=== PATIENT | female | born 2000 | race Caucasian/White ===

== ENCOUNTER 2021-06-05 15:28 | Inpatient (IN) ==
[2021-06-05] MEDS ORDERED: SODIUM CHLORIDE 0.9% 1000ML 1,000 ML IV SCH (15:45)
[2021-06-05] MEDS ORDERED: ONDANSETRON INJ 2 MG/ML 2 ML VIAL IV STA (15:49)
[2021-06-05] MEDS ORDERED: SODIUM CHLORIDE 0.9% 1000ML 1,000 ML IV ONE (15:51)
--- NOTE | 2021-06-05 15:56 | Emergency Department Note ---
Impression & Plan Deliberate medication overdose, Depression with suicidal ideation ED Provider Note NAME: TONIA BARNES AGE: 21 SEX: F : 2000 ARRIVES VIA: Walk-In INFORMANT: Patient, ED PROVIDER(S): Venu Ya DO CHIEF COMPLAINT: Overdose HPI: The patient is a 21-year-old female who presented to the emergency department from triage for an evaluation after an overdose. The patient states that she was not feeling well and had "a very rough morning". She states that she took an overdose of her Lexapro. She states that she took 30 tablets of the 20 mg Lexapro that she is prescribed for depression anxiety. She had 3 episodes of emesis after this. She states that this occurred around 3 PM. She is very depressed and states that she was trying to hurt her self. She denies having any chest pain or difficulty breathing. She did not have any reported seizures. She called her friend who brought her to the emergency department. The patient states that she has never been admitted to a facility for the symptoms before. She states that she has no hallucinations or other ingestions. Patient denies any drug or alcohol use today. ROS: See above HPI for pertinent positives & negatives. A total of 10 systems reviewed and were otherwise negative. PAST MEDICAL HISTORY: See Below PAST SURGICAL HISTORY: See Below FAMILY HISTORY: See Below SOCIAL HISTORY: See Below HOME MEDICATIONS: See Below ALLERGIES: See Below VITALS: See Below PHYSICAL EXAMINATION: GENERAL: The patient is awake and alert. She is guarded and somewhat anxious appearing. EYES: The conjunctivae are clear. The pupils are round and reactive. EARS, NOSE, MOUTH AND THROAT: The nose is without any evidence of any deformity. NECK: The neck is nontender and supple. RESPIRATORY: Normal respiratory effort is noted there is no evidence of wheezing rhonchi or rales CARDIOVASCULAR: Tachycardic rate with regular rhythm was noted. There is no definite murmur. GASTROINTESTINAL: The abdomen is soft. Abdomen is nontender. MUSCULOSKELETAL/EXTREMITIES: There is no evidence of gross deformity full range of motion is noted in the hips and shoulders. SKIN: There is no obvious evidence of any rash. There are no petechiae, pallor or cyanosis noted. NEUROLOGIC: Patient is awake alert and oriented x3 strength is symmetric p atellar reflexes are 2+ bilaterally PSYCH: Patient makes poor eye contact for mostly evaluation. Her affect is flat. She is currently admitting to thoughts of hurting herself. MEDICAL DECISION MAKING: The patient is a 21-year-old female who presented to the emergency department for mental health evaluation. The patient took a significant amount of Lexapro. She did have multiple episodes of emesis. Attempts were made to medically clear the patient in the emergency department. I discussed the patient's condition with poison control multiple times. I also discussed this case with the on-call [facility] hospitalist. She was treated with IV fluids in the emergency department. Her QTC did prolong after her initial EKG. Poison control felt the patient was a good candidate for inpatient management. They recommended every 6 hour EKG tracings followed by magnesium and potassium replacement based on the QTC. The patient was treated with IV fluids IV magnesium and oral potassium while she was in the emergency department. Triage Nursing notes reviewed. Prior medical records reviewed Vital Signs: reviewed and remarkable for tachycardia. Differential diagnosis: Overdose, toxicologic, infection, hypoglycemia, electrolyte abnormalities, cardiac sources, intracerebral event, neurologic, trauma, as well as other pathologies. ER treatment provided: See below Diagnostics interpreted by me: ECG: EKG was obtained in the emergency department. My interpretation is sinus tachycardia 107 bpm. There is no ectopy. Incomplete right bundle branch block pattern was noted. QRS duration was 88 ms. QTc was 483 ms. No previous tracing was available. A second EKG was obtained in the emergency department. My interpretation is sinus rhythm at 96 bpm. Incomplete right bundle branch block. The QTC is now 512 ms. The QRS duration continues to be 88 ms. Cardiac Monitoring: An order was placed for continuous cardiac monitoring. The monitor shows a rate of 103 bpm with sinus tachycardia. Laboratory studies: As stated above and show below. Imaging studies: See below Consultation(s): I discussed this case with Poison Control Center. Discussed this case with Dr. Pavon who is on-call for the [facility]ist group. Past Med/Surg History Medical History Anxiety Depression Social History Smoking Status: Never smoker Hx Alcohol Use: Yes Results & Data (ED) Vital Signs Vital Signs - 24 hr 06/05/21 15:30 06/05/21 15:57 06/05/21 16:00 Temperature 36.5 C Temperature Source Temporal Artery Scan Pulse Rate 129 H Pulse Rate [Apical] 103 H Pulse Rhythm [Apical] Pulse Strength [Apical] Respiratory Rate 18 21 Respiratory Effort / Characteristics Non-Labored Spontaneous Respiratory Depth Normal Respiratory Pattern Blood Pressure 132/77 Blood Pressure [Left Arm] 124/88 Blood Pressure Mean 95 Blood Pressure Mean [Left Arm] 100 Blood Pressure Position Sitting Blood Pressure Position [Left Arm] Pulse Oximetry 96 98 Oxygen Delivery Method Room Air Room Air Room Air Oxygen Flow Rate Sepsis Recent Fever Within 48 Hours No Sepsis New/Unexplained Change in Mental Status No Sepsis Action Taken by Nursing No Action Required 06/05/21 16:07 06/05/21 18:00 06/05/21 20:00 Temperature 36.9 C Temperature Source Oral Pulse Rate Pulse Rate [Apical] 99 H 103 H Pulse Rhythm [Apical] Regular Pulse Strength [Apical] Normal Respiratory Rate 19 18 Respiratory Effort / Characteristics Non-Labored Spontaneous Respiratory Depth Normal Respiratory Pattern Regular Blood Pressure Blood Pressure [Left Arm] 120/86 131/80 Blood Pressure Mean Blood Pressure Mean [Left Arm] 97 97 Blood Pressure Position Blood Pressure Position [Left Arm] Lying Pulse Oximetry 98 98 Oxygen Delivery Method Room Air Room Air Room Air Oxygen Flow Rate 98 Sepsis Recent Fever Within 48 Hours Sepsis New/Unexplained Change in Mental Status Sepsis Action Taken by [facility] Medications Current Medication List: was personally reviewed by me Laboratory Data Attestation: I reviewed the patient's lab results. Result diagrams: 06/05/21 15:55 06/05/21 15:55 Lab Results 06/05/21 06/05/21 06/05/21 Range/Units 15:44 15:44 15:55 WBC 7.10 (4.8-10.8) K/uL RBC 4.87 (4.2-5.4) M/uL Hgb 15.1 (12.0-16.0) g/dL Hct 41.9 (37-47) % MCV 86.0 (80-100) fL MCH 31.0 (25-34) pg MCHC 36.0 (32-36) g/dL RDW Std Deviation 41.8 (36.4-46.3) fL RDW Coeff of Sweta 13.2 (11.5-14.5) % Plt Count 263 (130-400) K/uL MPV 9.2 (7.4-10.4) fL Immature Gran % (Auto) 0.3 % Neut % (Auto) 49.9 % Lymph % (Auto) 41.1 % [place] % (Auto) 6.8 % Eos % (Auto) 1.3 % Baso % (Auto) 0.6 % Neut # (Auto) 3.55 (1.4-6.5) K/uL Lymph # (Auto) 2.92 (1.2-3.4) K/uL [place] # (Auto) 0.48 (0.11-0.59) K/uL Eos # (Auto) 0.09 (0-0.5) K/uL Baso # (Auto) 0.04 (0-0.2) K/uL Immature Gran # (Auto) 0.02 (0.00-0.02) K/uL PT (9.0-12.0) Seconds INR (0.9-1.1) Sodium (136-145) mmol/L Potassium (3.5-5.1) mmol/L Chloride (98-107) mmol/L Carbon Dioxide (21-32) mmol/L Anion Gap (3-11) BUN (6-23) mg/dl Creatinine (0.6-1.2) mg/dl Est Cr Clr Drug Dosing ml/min Est GFR ( Amer) ml/min Est GFR (Non-Af Amer) ml/min BUN/Creatinine Ratio (10-20) Glucose (70-99(Fasting)) mg/dl Calcium (8.5-10.1) mg/dl Magnesium (1.7-2.4) mg/dl Total Bilirubin (0.2-1.0) mg/dl AST (13-39) U/L ALT (7-52) U/L Alkaline Phosphatase (34-104) U/L Total Creatine Kinase (26-192) U/L Troponin I (0-0.04) ng/ml Total Protein (6.0-8.3) gm/dl Albumin (3.4-5.0) gm/dl Globulin (2.5-4.0) gm/dl Albumin/Globulin Ratio (0.9-2) HCG, Qual (Negative) Urine Color Yellow Urine Appearance Clear (Clear) Urine pH 5.5 (4.5-7.5) Ur Specific [place] 1.019 (1.000-1.030) Urine Protein Negative (Negative) Urine Glucose (UA) Negative (Negative) Urine Ketones Negative (Negative) Urine Blood Negative (Negative) Urine Nitrite Negative (Negative) Urine Bilirubin Negative (Negative) Urine Urobilinogen Negative (Negative) Ur Leukocyte Esterase Negative (Negative) Salicylates (3.0-30) mg/dl Urine Opiates Screen Neg (Neg) Ur Methadone, Qual Neg (Neg) Acetaminophen (10-30) ug/ml Urine Barbiturates Neg (Neg) Ur Phencyclidine (PCP) Neg (Neg) U Amphetamin/Meth Scrn Neg (Neg) MDMA (Ecstasy) Screen Neg (Neg) U Benzodiazepines Scrn Neg (Neg) Ur Cocaine Metabolite Neg (Neg) U Marijuana (THC) Screen Neg (Neg) Ethyl Alcohol mg/dL (<10.0) mg/dl SARS-CoV-2, RNA, NAAT (NEGATIVE) 06/05/21 06/05/21 06/05/21 Range/Units 15:55 15:55 15:55 WBC (4.8-10.8) K/uL RBC (4.2-5.4) M/uL Hgb (12.0-16.0) g/dL Hct (37-47) % MCV (80-100) fL MCH (25-34) pg MCHC (32-36) g/dL RDW Std Deviation (36.4-46.3) fL RDW Coeff of Sweta (11.5-14.5) % Plt Count (130-400) K/uL MPV (7.4-10.4) fL Immature Gran % (Auto) % Neut % (Auto) % Lymph % (Auto) % [place] % (Auto) % Eos % (Auto) % Baso % (Auto) % Neut # (Auto) (1.4-6.5) K/uL Lymph # (Auto) (1.2-3.4) K/uL [place] # (Auto) (0.11-0.59) K/uL Eos # (Auto) (0-0.5) K/uL Baso # (Auto) (0-0.2) K/uL Immature Gran # (Auto) (0.00-0.02) K/uL PT 10.5 (9.0-12.0) Seconds INR 1.0 (0.9-1.1) Sodium 142 (136-145) mmol/L Potassium 3.9 (3.5-5.1) mmol/L Chloride 108 H (98-107) mmol/L Carbon Dioxide 22 (21-32) mmol/L Anion Gap 12 H (3-11) BUN 19 (6-23) mg/dl Creatinine 0.82 (0.6-1.2) mg/dl Est Cr Clr Drug Dosing 93.4 ml/min Est GFR ( Amer) 118.6 ml/min Est GFR (Non-Af Amer) 102.3 ml/min BUN/Creatinine Ratio 23.2 H (10-20) Glucose 101 H (70-99(Fasting)) mg/dl Calcium 9.1 (8.5-10.1) mg/dl Magnesium 1.8 (1.7-2.4) mg/dl Total Bilirubin 0.4 (0.2-1.0) mg/dl AST 32 (13-39) U/L ALT 24 (7-52) U/L Alkaline Phosphatase 58 (34-104) U/L Total Creatine Kinase 145 (26-192) U/L Troponin I < 0.03 (0-0.04) ng/ml Total Protein 7.3 (6.0-8.3) gm/dl Albumin 4.5 (3.4-5.0) gm/dl Globulin 2.8 (2.5-4.0) gm/dl Albumin/Globulin Ratio 1.6 (0.9-2) HCG, Qual (Negative) Urine Color Urine Appearance (Clear) Urine pH (4.5-7.5) Ur Specific [place] (1.000-1.030) Urine Protein (Negative) Urine Glucose (UA) (Negative) Urine Ketones (Negative) Urine Blood (Negative) Urine Nitrite (Negative) Urine Bilirubin (Negative) Urine Urobilinogen (Negative) Ur Leukocyte Esterase (Negative) Salicylates < 3.0 L (3.0-30) mg/dl Urine Opiates Screen (Neg) Ur Methadone, Qual (Neg) Acetaminophen < 3 L (10-30) ug/ml Urine Barbiturates (Neg) Ur Phencyclidine (PCP) (Neg) U Amphetamin/Meth Scrn (Neg) MDMA (Ecstasy) Screen (Neg) U Benzodiazepines Scrn (Neg) Ur Cocaine Metabolite (Neg) U Marijuana (THC) Screen (Neg) Ethyl Alcohol mg/dL (<10.0) mg/dl SARS-CoV-2, RNA, NAAT (NEGATIVE) 06/05/21 06/05/21 06/05/21 Range/Units 15:55 15:55 18:05 WBC (4.8-10.8) K/uL RBC (4.2-5.4) M/uL Hgb (12.0-16.0) g/dL Hct (37-47) % MCV (80-100) fL MCH (25-34) pg MCHC (32-36) g/dL RDW Std Deviation (36.4-46.3) fL RDW Coeff of Sweta (11.5-14.5) % Plt Count (130-400) K/uL MPV (7.4-10.4) fL Immature Gran % (Auto) % Neut % (Auto) % Lymph % (Auto) % [place] % (Auto) % Eos % (Auto) % Baso % (Auto) % Neut # (Auto) (1.4-6.5) K/uL Lymph # (Auto) (1.2-3.4) K/uL [place] # (Auto) (0.11-0.59) K/uL Eos # (Auto) (0-0.5) K/uL Baso # (Auto) (0-0.2) K/uL Immature Gran # (Auto) (0.00-0.02) K/uL PT (9.0-12.0) Seconds INR (0.9-1.1) Sodium (136-145) mmol/L Potassium (3.5-5.1) mmol/L Chloride (98-107) mmol/L Carbon Dioxide (21-32) mmol/L Anion Gap (3-11) BUN (6-23) mg/dl Creatinine (0.6-1.2) mg/dl Est Cr Clr Drug Dosing ml/min Est GFR ( Amer) ml/min Est GFR (Non-Af Amer) ml/min BUN/Creatinine Ratio (10-20) Glucose (70-99(Fasting)) mg/dl Calcium (8.5-10.1) mg/dl Magnesium (1.7-2.4) mg/dl Total Bilirubin (0.2-1.0) mg/dl AST (13-39) U/L ALT (7-52) U/L Alkaline Phosphatase (34-104) U/L Total Creatine Kinase (26-192) U/L Troponin I (0-0.04) ng/ml Total Protein (6.0-8.3) gm/dl Albumin (3.4-5.0) gm/dl Globulin (2.5-4.0) gm/dl Albumin/Globulin Ratio (0.9-2) HCG, Qual Negative (Negative) Urine Color Urine Appearance (Clear) Urine pH (4.5-7.5) Ur Specific [place] (1.000-1.030) Urine Protein (Negative) Urine Glucose (UA) (Negative) Urine Ketones (Negative) Urine Blood (Negative) Urine Nitrite (Negative) Urine Bilirubin (Negative) Urine Urobilinogen (Negative) Ur Leukocyte Esterase (Negative) Salicylates (3.0-30) mg/dl Urine Opiates Screen (Neg) Ur Methadone, Qual (Neg) Acetaminophen (10-30) ug/ml Urine Barbiturates (Neg) Ur Phencyclidine (PCP) (Neg) U Amphetamin/Meth Scrn (Neg) MDMA (Ecstasy) Screen (Neg) U Benzodiazepines Scrn (Neg) Ur Cocaine Metabolite (Neg) U Marijuana (THC) Screen (Neg) Ethyl Alcohol mg/dL 81.9 H (<10.0) mg/dl SARS-CoV-2, RNA, NAAT NEGATIVE (NEGATIVE) Administered Medications Discontinued Medications Sodium Chloride (Nss 1000ml) 1,000 mls @ 999 mls/hr IV .Q1H1M ANJEL Stop: 06/05/21 16:45 Last Infusion: 06/05/21 17:45 Dose: 0 mls/hr Documented by: [id number] Admin: 06/05/21 16:09 Dose: 999 mls/hr Documented by: [id number] Sodium Chloride (Nss 1000ml) 1,000 mls @ 999 mls/hr IV .Q1H1M ONE Stop: 06/05/21 16:51 Last Infusion: 06/05/21 18:15 Dose: 0 mls/hr Documented by: [id number] Admin: 06/05/21 16:52 Dose: 999 mls/hr Documented by: [id number] Ondansetron HCl (Ondansetron Inj 2 Mg/Ml 2 Ml Vial) 4 mg IV NOW STA Stop: 06/05/21 15:50 Last Admin: 06/05/21 16:24 Dose: 4 mg Documented by: [id number] Discharge Plan Visit Data Chief Complaint: Overdose (Intentional) Stated Complaint: OVERDOSE ED Provider: Venu Ya Discharge Problem: Deliberate medication overdose, Depression with suicidal ideation Patient Disposition: Being Evaluated by Hospitalist Forms Stand Alone Forms: [facility], Suicide Prevention Resources Referrals Referrals: PCP,NO [Physician] -
[2021-06-05 16:13] LABS: Appearance Urine Clear (Clear); Bilirubin Urine Negative (Negative); Blood Urine Negative (Negative); Color Urine Yellow; Glucose Urine UA Negative (Negative); Ketones Urine Negative (Negative); Leukocyte Esterase Urine Negative (Negative); Nitrite Urine Negative (Negative); Protein Urine Negative (Negative); Specific Gravity Urine 1.019 (1.000-1.030); Urobilinogen Urine Negative (Negative); pH Urine 5.5 (4.5-7.5)
[2021-06-05 16:17] LABS: Basophils # (auto) 0.04 K/uL (0-0.2); Basophils % (auto) 0.6 %; Eosinophils # (auto) 0.09 K/uL (0-0.5); Eosinophils % (auto) 1.3 %; Hematocrit (blood only) 41.9 % (37-47); Hemoglobin 15.1 g/dL (12.0-16.0); Immature Granulocytes # (auto) 0.02 K/uL (0.00-0.02); Immature Granulocytes % (auto) 0.3 %; Lymphocytes # (auto) 2.92 K/uL (1.2-3.4); Lymphocytes % (auto) 41.1 %; Mean Platelet Volume 9.2 fL (7.4-10.4); Monocytes # (auto) 0.48 K/uL (0.11-0.59); Monocytes % (auto) 6.8 %; Neutrophils # (auto) 3.55 K/uL (1.4-6.5); Neutrophils % (auto) 49.9 %; Platelet Count 263 K/uL (130-400); RDW Coefficient of Variation 13.2 % (11.5-14.5); RDW Standard Deviation 41.8 fL (36.4-46.3); Red Blood Count 4.87 M/uL (4.2-5.4)
[2021-06-05 16:22] LABS: Prothrombin Time 10.5 Seconds (9.0-12.0)
[2021-06-05 16:31] LABS: Amphetamines+Metham, Urine Neg (Neg); Barbiturates, Urine Neg (Neg); Benzodiazepine, Urine Neg (Neg); Cocaine, Urine Neg (Neg); MDMA (Ecstacy), Urine Neg (Neg); Methadone, Urine Neg (Neg); Opiate, Urine Neg (Neg); Phencyclidine, Urine Neg (Neg)
[2021-06-05 16:45] LABS: Acetaminophen < 3 ug/ml (10-30); Salicylate < 3.0 mg/dl (3.0-30)
[2021-06-05 16:46] LABS: Troponin I < 0.03 ng/ml (0-0.04)
[2021-06-05 16:49] LABS: Alanine Aminotransferase 24 U/L (7-52); Albumin Globulin Ratio 1.6 (0.9-2); Albumin Level 4.5 gm/dl (3.4-5.0); Alkaline Phosphatase 58 U/L (34-104); Anion Gap 12 (3-11); Aspartate Aminotransferase 32 U/L (13-39); BUN Creatinine Ratio 23.2 (10-20); Bilirubin,Total 0.4 mg/dl (0.2-1.0); Blood Urea Nitrogen 19 mg/dl (6-23); Calcium 9.1 mg/dl (8.5-10.1); Carbon Dioxide 22 mmol/L (21-32); Chloride 108 mmol/L (98-107); Creatine Kinase 145 U/L (26-192); Creatinine Clr Calc Pharmacy 93.4 ml/min; Est GFR (African American) 118.6 ml/min; Est GFR (Non-African American) 102.3 ml/min; Globulin 2.8 gm/dl (2.5-4.0); Glucose 101 mg/dl (70-99(Fasting)); Magnesium 1.8 mg/dl (1.7-2.4); Potassium 3.9 mmol/L (3.5-5.1); Sodium 142 mmol/L (136-145); Total Protein 7.3 gm/dl (6.0-8.3)
[2021-06-05 17:00] LABS: Pregnancy Test, Serum Negative (Negative)
[2021-06-05] MEDS ORDERED: POTASSIUM CHLORIDE 10 MEQ TABCR PO STA (20:51)
[2021-06-05] MEDS: MAGNESIUM SULFATE / D5W 1 GM/100 ML BAG IV SCH ×2 (21:36→23:29)
--- NOTE | 2021-06-05 21:50 | History & Physical Report ---
Date of Service June 05, 2021 Assessment & Plan (1) Deliberate medication overdose: Plan: Terese Quevedo is a 21-year-old female with history of depression who was brought to the hospital due to intentional Lexapro overdose. Depression with intentional medication overdose Patient intentionally ingested Lexapro 20 mg x 30 pills in an attempt to self- harm Per patient, this is the first time she has attempted Admit to telemetry Hold any further Lexapro doses Will continue IV hydration with LR at 125 cc/h EKGs every 6 hours Mag sulfate, potassium chloride supplementation depending on QTc interval on EKGs Patient with several episodes of emesis, nausea now seems resolved will hold on ordering as needed antiemetics due to risk of further QT prolongation Psych consult in a.m. DVT prophylaxis: SCDs Dispo: Admit to med telemetry Diet: Regular CODE STATUS: Full (2) Depression with suicidal ideation: History of Present Illness Primary Care Provider: [facility] Terese Quevedo is a 21-year-old female with history of depression who was brought to the hospital due to intentional Lexapro overdose. She states that she was feeling particularly down today and had a rough morning. Around 3 PM patient took 30 pills of her 20 mg Lexapro, which she uses daily for depression. Shortly after she had 3 episodes of emesis. At that point, patient became concerned and called a friend, who brought her to the hospital. Per patient, this is her first self-harm attempt. At this time, patient is stable. She denies chest pain, palpitations, shortness of breath, headache, dizziness, nausea, hallucination. Denies any illicit drug use or alcohol consumption today. In ED, patient had EKG initially showing mildly prolonged QTC at 483, repeat EKG showed QTC of 512. ED provider did contact poison control, who recommended admission for hydration, serial monitoring of EKGs, and magnesium/potassium repl acement based on QTC. She did receive mag sulfate 2 g, KCl 20 mEq in ED. I discussed plan of care with patient, friend at bedside, patient's father at bedside. All in agreement, all questions answered to their satisfaction. Allergies Allergy/AdvReac Type Severity Reaction Status Date / Time No Known Allergies Allergy Unverified 06/06/21 19:42 Past Med/Surg History Medical History Anxiety Depression Social History Smoking Status: Never smoker Hx Alcohol Use: Yes Alcohol type: beer, wine and hard liquor Hx Substance Use: No Preferred Language: Belarusian Communication Ability: Effective Lozenge Maker Helper Required: No Beliefs That Will Affect Care: None Current Living Situation: Other Current Living Situation Comment: Lives in an apartment with three roommates Feels Safe at Home: Yes Assistive Devices: None Review of Systems Review of Systems: All systems reviewed & are unremarkable except as noted in HPI & below Physical Exam Physical Exam: GENERAL: A&Ox3. NAD. HEENT: PERRL, EOMI. Moist mucous membranes. NECK: No JVD. No lymphadenopathy. CHEST/LUNGS: CTAB A/P. No crackles, wheezes, rales, rhonchi. HEART: RRR. No m/g/r. No carotid bruits. ABDOMEN: NT/ND, soft. BS+ x4 EXTREMITIES: No cyanosis, no clubbing, no edema SKIN: Warm and dry. No rashes or lesions. PSYCHIATRIC: Euthymic affect, no SI, no pressured speech, no hallucinations NEUROLOGIC: No FND CN II-XII grossly intact. Results & Data Results & Data ([facility]) Vital Signs (Past 12 Hours) Vital Signs Temp Pulse Pulse Resp BP BP Pulse Ox 06/05/21 20:00 36.9 C 103 H 18 131/80 98 06/05/21 18:00 99 H 19 120/86 98 06/05/21 16:00 103 H 21 124/88 98 06/05/21 15:30 36.5 C 129 H 18 132/77 96 Supervising Physician Co-Signing Physician Notes Attending addendum: I have physically seen this patient, have supervised the medical residents activities, and agree with the H&P unless as otherwise noted. Assessment and Plan: Intentional drug overdose with Lexapro- Admit to monitored bed Continue IV fluid hydration with LR at 125 mils per hour Follow serial EKGs, attention to QT interval Psychiatry consult in a.m. Remaining orders and notations as noted Resident Activity Tracking Resident Involvement: Resident Care Provided Care Provided: Adult [facility]
[2021-06-05] MEDS: LACTATED RINGER'S 1,000 ML IV SCH (23:28)
[2021-06-06] MEDS: LACTATED RINGER'S 1,000 ML IV SCH ×2 (07:29→15:41)
[2021-06-06 09:05] LABS: Basophils # (auto) 0.03 K/uL (0-0.2); Basophils % (auto) 0.5 %; Eosinophils # (auto) 0.07 K/uL (0-0.5); Eosinophils % (auto) 1.2 %; Hematocrit (blood only) 38.2 % (37-47); Hemoglobin 13.4 g/dL (12.0-16.0); Immature Granulocytes % (auto) 0.2 %; Lymphocytes # (auto) 2.37 K/uL (1.2-3.4); Lymphocytes % (auto) 40.2 %; Mean Corpuscular Hemoglobin 30.7 pg (25-34); Mean Corpuscular Hgb Conc 35.1 g/dL (32-36); Mean Corpuscular Volume 87.4 fL (80-100); Mean Platelet Volume 9.4 fL (7.4-10.4); Monocytes # (auto) 0.66 K/uL (0.11-0.59); Monocytes % (auto) 11.2 %; Neutrophils # (auto) 2.76 K/uL (1.4-6.5); Neutrophils % (auto) 46.7 %; Platelet Count 210 K/uL (130-400); RDW Coefficient of Variation 12.8 % (11.5-14.5); RDW Standard Deviation 41.3 fL (36.4-46.3); Red Blood Count 4.37 M/uL (4.2-5.4)
[2021-06-06 09:06] LABS: Immature Granulocytes # (auto) 0.01 K/uL (0.00-0.02)
[2021-06-06 09:24] LABS: Albumin Globulin Ratio 1.7 (0.9-2); Albumin Level 3.7 gm/dl (3.4-5.0); BUN Creatinine Ratio 15.7 (10-20); Bilirubin,Total 0.7 mg/dl (0.2-1.0); Calcium 8.5 mg/dl (8.5-10.1); Creatinine Clr Calc Pharmacy 109.4 ml/min; Est GFR (African American) 143.5 ml/min; Est GFR (Non-African American) 123.9 ml/min; Globulin 2.2 gm/dl (2.5-4.0); Potassium 3.6 mmol/L (3.5-5.1); Total Protein 5.9 gm/dl (6.0-8.3)
--- NOTE | 2021-06-06 10:28 | Hospitalist Progress Note ---
Date of Service June 06, 2021 Assessment & Plan (1) Deliberate medication overdose: Plan: Patient intentionally ingested Lexapro 20 mg x 30 pills in an attempt to self- harm Per patient, this is the first time she has attempted Medically stable for discharge at this time - 24 hours post ingestion. QTc not prolonged. VS stable. Labs unremarkable. Hold any further Lexapro doses - appreciate psychiatry consult - patient agreeable to 201 nd planning on discharge to a psychiatric bed once available (2) Depression with suicidal ideation: (3) Anxiety: Plan: Holding all SSRIs given overdose with Lexapro (4) Depression: Plan: As above Plan: DVT prophylaxis: SCDs Dispo: medically stable for discharge at this time as soon as a bed is available with psychiatry Diet: Regular CODE STATUS: Full Admission and Anticipated Discharge Date Admission Date: June 05, 2021 Subjective No concerns, questions or ongoing symptoms. No further nausea or vomiting. No chest pain, shortness of breath, extremity weakness, change in vision, hearing or speech. Review of Systems Review of Systems: All systems reviewed & are unremarkable except as noted in Subjective Physical Exam Constitutional: WD/WN, vitals as above Eyes: PERRL, conjunctivae normal, anicteric sclerae ENMT: external ear and nose normal, oropharynx normal Respiratory: normal respiratory effort, lungs clear to auscultation Cardiovascular: RRR, no murmur, no edema Gastrointestinal (Abdomen): normal bowel sounds, soft, nontender, no hepatosplenomegaly Skin: no rashes, warm and dry Neurologic: moves all extremities and awake; not confused Psychiatric: A+Ox3, euthymic affect Results & Data Results & Data ([facility]) Vital Signs (Past 12 Hours) Vital Signs Temp Pulse Pulse Resp BP BP Pulse Ox 06/06/21 07:00 66 20 115/76 96 06/06/21 04:00 69 17 96 06/06/21 03:48 68 17 107/56 L 94 06/06/21 03:00 68 21 96 06/06/21 02:00 73 20 95 06/06/21 01:00 93 H 17 96 06/06/21 00:00 84 23 97 06/05/21 23:23 36.7 C 86 17 125/67 96 06/05/21 23:09 86 19 125/67 96 06/05/21 23:07 98 H 12 06/05/21 22:30 84 16 119/69 95 Pulse Ox 06/06/21 07:00 06/06/21 04:00 06/06/21 03:48 06/06/21 03:00 06/06/21 02:00 06/06/21 01:00 06/06/21 00:00 06/05/21 23:23 06/05/21 23:09 06/05/21 23:07 99 06/05/21 22:30 PG Care Time/CCT Total # of Minutes Spent Total Time Spent with Patient: Total time spent is greater than 50% in coordination of care (as documented) at patient's floor/unit and/or counseling patient: Coding Level of Care Code 82046 Subseq Hosp Care Lvl 2 Diagnoses Depression with suicidal ideation F32.A; R45.851 Deliberate medication overdose T50.902A Depression F32.A Anxiety F41.9
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
--- NOTE | 2021-06-06 21:56 | Electrocardiogram Report ---
Test Reason : Blood Pressure : / mmHG Vent. Rate : 107 BPM Atrial Rate : 107 BPM P-R Int : 142 ms QRS Dur : 088 ms QT Int : 362 ms P-R-T Axes : 057 089 067 degrees QTc Int : 483 ms Sinus tachycardia Possible Left atrial enlargement Prolonged QT No previous ECGs available Confirmed by Basil Youssef ([id number]) on 06/06/2021 9:55:35 PM Referred By: REFERRED SELF Confirmed By:Basil Youssef
--- NOTE | 2021-06-06 22:03 | Electrocardiogram Report ---
Test Reason : Blood Pressure : / mmHG Vent. Rate : 096 BPM Atrial Rate : 096 BPM P-R Int : 134 ms QRS Dur : 088 ms QT Int : 388 ms P-R-T Axes : 054 088 053 degrees QTc Int : 491 ms Poor data quality, interpretation may be adversely affected Normal sinus rhythm Possible Left atrial enlargement Nonspecific T wave abnormality Prolonged QT Abnormal ECG When compared with ECG of 05-JUN-2021 16:00, Nonspecific T wave abnormality, worse in Anterolateral leads Confirmed by Basil Youssef ([id number]) on 06/06/2021 10:02:49 PM Referred By: REFERRED SELF Confirmed By:Basil Youssef
--- NOTE | 2021-06-06 22:09 | Electrocardiogram Report ---
Test Reason : Blood Pressure : / mmHG Vent. Rate : 075 BPM Atrial Rate : 075 BPM P-R Int : 142 ms QRS Dur : 088 ms QT Int : 432 ms P-R-T Axes : 045 087 063 degrees QTc Int : 482 ms Poor data quality, interpretation may be adversely affected Normal sinus rhythm Prolonged QT Abnormal ECG When compared with ECG of 05-JUN-2021 20:19, Nonspecific T wave abnormality no longer evident in Inferior leads Nonspecific T wave abnormality no longer evident in Anterolateral leads Confirmed by Basil Youssef ([id number]) on 06/06/2021 10:09:42 PM Referred By: REFERRED SELF Confirmed By:Basil Youssef
--- NOTE | 2021-06-07 03:29 | Billing Data ---
Date of Service June 07, 2021 Coding Level of Care Code 70087 Initial Inpt Care Lvl 2
--- NOTE | 2021-06-09 16:06 | Discharge Summary ---
Date of Service June 09, 2021 Admission HPI Per Admitting Provider Terese Quevedo is a 21-year-old female with history of depression who was brought to the hospital due to intentional Lexapro overdose. She states that she was feeling particularly down today and had a rough morning. Around 3 PM patient took 30 pills of her 20 mg Lexapro, which she uses daily for depression. Shortly after she had 3 episodes of emesis. At that point, patient became concerned and called a friend, who brought her to the hospital. Per patient, this is her first self-harm attempt. At this time, patient is stable. She denies chest pain, palpitations, shortness of breath, headache, dizziness, nausea, hallucination. Denies any illicit drug use or alcohol consumption today. In ED, patient had EKG initially showing mildly prolonged QTC at 483, repeat EKG showed QTC of 512. ED provider did contact poison control, who recommended admission for hydration, serial monitoring of EKGs, and magnesium/potassium replacement based on QTC. She did receive mag sulfate 2 g, KCl 20 mEq in ED. I discussed plan of care with patient, friend at bedside, patient's father at bedside. All in agreement, all questions answered to their satisfaction. Principal Diagnosis Intentional Lexapro overdose Discharge Exam Constitutional WD/WN, vitals as above Eyes PERRL, conjunctivae normal, anicteric sclerae Neck trachea midline, no thyromegaly Respiratory normal respiratory effort, lungs clear to auscultation Cardiovascular RRR, no murmur, no edema Gastrointestinal (Abdomen) Inspection/Auscultation: normal bowel sounds Percussion/Palpation: abdomen soft; abdomen nontender, no guarding and abdomen not rigid Musculoskeletal no cyanosis or clubbing, extremities motor strength 5/5 Skin no rashes, warm and dry Neurologic moves all extremities and awake; no focal motor deficits and not confused Motor/Sensory: no tremor Psychiatric A+Ox3, euthymic affect Discharge Data Allergies Allergy/AdvReac Type Severity Reaction Status Date / Time No Known Allergies Allergy Unverified 06/06/21 19:42 Consultations 06/05/21 21:19 ED Decision to Admit Stat 06/05/21 23:07 Consult Psychiatry Routine 06/05/21 23:32 Consult Behavioral Health Liaison Routine Hospital Course (1) Deliberate medication overdose: Terese Quevedo is a 21 year old female was observed overnight at [facility] from June 05 - 2021 due to an overdose of Lexapro. EKGs, labs have been unremarkable and she is now medically stable for discharge for ongoing psychiatric care. (2) Depression with suicidal ideation: Total Time Total Time Spent Total Time Spent (In Minutes): 25 Discharge Plan Discharge Items Patient Disposition: Transfer Behavioral Health Fac Reason For Visit: LEXAPRO OVERDOSE Discharge Diagnosis: Intentional Lexapro overdose Activity: Resume your previous activity Non-emergency contact: Psychiatrist Call non-emergency contact if: you have any medication questions and your symptoms worsen Follow-up/Referrals: [facility] [Primary Care Provider] - Diet: Regular Addtl Attending Provider Instructions: You were observed overnight at [facility] from June 05 - 2021 due to an overdose of Lexapro. EKGs, labs have been stable and you are now medically stable for discharge for ongoing psychiatric care. Pending Studies at Discharge: No Stand-Alone Forms: My [facility] Medications and DC Order Discharge Orders: Discharge Order (Routine); Ordered 06/06/21 Ordered By: Torito Dwyer Admission Data Admit Date/Time: 06/05/21 21:56 Attending Provider: Torito Dwyer Admit Provider: Bereket Bahena Primary Care Provider: [facility] Other Providers: Silvano Pavon ; Raquel Faustin ; Donna Beverly ; Kimberly Barry Other Interventions: Discharge Summary Assessment (RN) Last Done: 06/06/21 17:08 Coding Level of Care Code D/C DAY MANAGEMENT <30 MINS Diagnoses Deliberate medication overdose T50.902A Depression with suicidal ideation F32.A; R45.851
== END 2021-06-06 18:02 | DRG 918 ==
LOC: ED 15:28 → SUATTDRO 21:56 → 1E 21:56

== ENCOUNTER 2021-06-06 18:00 | Inpatient (IN) ==
[2021-06-06] MEDS ORDERED: ALUMINUM/MAGNESIUM SUSP 30 ML UDC PO PRN (18:05)
[2021-06-06] MEDS ORDERED: ACETAMINOPHEN 325 MG TAB PO PRN (18:05)
[2021-06-06] MEDS ORDERED: hydrOXYzine HCl 25 MG TAB PO PRN ×2 (18:05)
[2021-06-06] MEDS ORDERED: BISMUTH SUBSALICYLATE LIQD 236 ML PO PRN (18:05)
[2021-06-06] MEDS ORDERED: MAGNESIUM HYDROXIDE SUSP 30 ML UDC PO PRN (18:05)
[2021-06-06] MEDS ORDERED: SODIUM CHLORIDE 0.65% NA SOLN 45 ML (OCEAN) PRN (18:05)
[2021-06-06] MEDS ORDERED: PATIENT'S HEIGHT AND/OR WEIGHT NEEDED SCH (18:15)
--- NOTE | 2021-06-07 08:48 | History & Physical ---
Date of Service June 07, 2021 Impression / Recommendations Impression 21 yo woman and [employer] student admitted following impulsive suicide attempt in context of recent trauma and subsequently worsening PTSD, depression symptoms and increasing alcohol use. Diagnostically consistent with historical diagnoses and PTSD, atypical depressive disorder and alcohol use disorder. The patient is deemed unstable and requires psychiatric hospitalization for diagnostic clarification, safety and stabilization, medication management and development of further coping skills. Discussed medication treatment options in detail. Discussed risks, benefits and alternatives. Patient would like to start sertraline for depression, STEPHANI, panic disorder, OCD and PTSD. Counseled on black box warning of potential for emergence of or increased SI and need to let staff know should this occur or should they feel unsafe. Also discussed importance of seeking emergency care following discharge if this side effect occurs in the future. She also consents to starting prazosin for night terrors related to PTSD reviewed risks including but not limited to syncope, low BP, dizziness. Stopping escitalopram d/t overdose and limited benefit for PTSD/depression. Stopping Wellbutrin d/t ongoing periods of binging. The patient's audit score and use history suggests problematic substance use. Brief intervention was offered and accepted. Intervention was greater than 5 minutes in length and included assessing readiness to quit, advice on how to reduce or abstain and to set a specific goal for this hospitalization. workers compensation legal secretary will also assist in anticipating barriers to reducing or abstaining from substance use and in problem-solving for solutions to those problems while arranging for referral to appropriate treatment. The patient is in contemplative stage with regards to transtheoretical model of change. The patient is advised to decrease consumption due to depressant effects and risk of interaction with prescription medications. The patient agreed to reduce alcohol use and will be provided with recovery materials to continue to educate self on how to cope with their condition without using substances. Reviewed potential MAT options, not felt to be appropriate at this time due to depression but could be considered in the future. (1) Post traumatic stress disorder (PTSD): (2) Atypical depressive disorder: (3) Alcohol use disorder, moderate, dependence: (4) Panic disorder: (5) Obsessive compulsive disorder: (6) STEPHANI (generalized anxiety disorder): (7) Bulimia: 06/07/21: The patient was admitted to the [facility] ([facility]) on q15 min checks (behavioral with suicide precautions) for safety. The patient will participate in group, recreational, and milieu therapies and will be offered additional individual and family sessions as clinically appropriate. -Repeat EKG given QTc had been elevated -If EKG normal will start sertraline 25mg qAM tomorrow -Start prazosin 1mg qhs Inventory Assets Strengths: motivated to get better, excited about major change, supportive family/friends Needs: outpatient providers, additional coping skills, med adjustments Risk Factors Assessment Acute risk is elevated given suicide attempt with multiple psychiatric co- morbidities and trauma. Chronic risk is moderate given non-modifiable risk factors but also many protective factors. Most significant modifiable risk factors to reduce acute and chronic risk are reducing substance use and treating mood symptoms including PTSD. Counseled on ways to reduce her acute and chronic risk through substance reduction, medications, therapy which she is agreeable with. Male: No : Yes Do You Have Access To A Gun?: No Health Problems: No Mental Health Diagnoses: Yes Substance Use Disorders: Yes Previous Attempt: Yes Family History of Suicide: No Previous Psychiatric Hospitalization: No Hopelessness: No Smoker: No Protective Factors Assessment Employed: Yes Stable Relationships: Yes Supportive Family: Yes Psychiatric History Identifying Data TONIA BARNES is a 21-year-old woman and [employer] student who currently lives with roommates in an off-campus apartment in [place], has a history of depression, anxiety, OCD, panic disorder, trauma and bulimia, and was admitted on 06/06/21 18:02 on a 201 voluntary commitment for suicide attempt via overdose of escitalopram requiring medical admission prior to transfer to inpatient psychiatry. Chief Complaint "My mood shifts a lot and suddenly". History of Present Illness Edwin presents following impulsive suicide attempt via ingestion of 20-40 tabs of escitalopram and medical stabilization on the hospitalist service with prolonged QTc. She recently withdrew from her spring semester at 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 She feels that "my mood changes really frequently" "sometimes my mood is great and I'm really happy and then something happens and I feel awful". She notes she tries to cope with these mood fluctuations by going for a run or sometimes with binging. The night prior to the attempt she had blacked out from drinking alcohol and the next day her friend expressed concern about "that I had blacked out so badly" and this lead her to feel "guilt" as it brought up memories of past trauma experiences which occurred in the setting of alcohol use and this prompted the suicide attempt. She immediately regreted the attempt and self-induced vomiting an sought medical treatment. She thinks her mood shifted so quickly because "this wasn't the choice that I wanted to make", "I want to live". She notes her family and frien ds are strong reasons to live. She's excited about her major changes and wanting to work in restaurant management. Her biggest current challenges are mood shifts, "a complete lack of focus and easily daydreaming about something", she also feels her sleeping and eating is sporadic and not in a good routine due to her mood fluctuations. She scored an 18 on the PHQ-9 related to prominent neurovegetative symptoms. Has periods of helplessness and hopelessness. Denies anhedonia. She found the lexapro was really helping with her anxiety, panic disorder and OCD. Self-harms via cutting maybe once every 6 months. She can go 2 months without purging and then it can occur daily for about two weeks and then will be able to go months again with purging. She experiences flashbacks at times, night terrors on average 4-5 times per week, avoidance, hypervigilance. OCD symptoms are "hard to pinpoint" but sometimes counts on her fingers, alternating tensing muscles on opposing sides of the body with intrusive worries that something bad will happen or someone she loves will . Psychiatric ROS notable for denial of psychosis, no hx [place]. Past Psychiatric History Previous Psych History: panic disorder, anxiety, OCD; hx bulimia at age 15 last episode of purging was two months ago Current Psychiatric Diagnosis: MDD Outpatient Services: medications prescribed by provider at [facility]; in the past saw a therapist at age 15 and then again in Mar 2019 using DBT approach both in [place]; had been scheduled to see a [facility] provider for therapy Previous Psych Admissions: n/a Do You Have Access To A Gun?: No History of Previous Suicide Attempt: Yes (Feb 2019) Describe Attempts in the Past: tried to cut herself on her wrist to bled to while intoxicated Past Medication Trials: escitalopram 20mg since summer 2020; Wellbutrin SR 100mg since fall 2020 Past Head Trauma/Neuro History History of Concussion/Seizure: No Allergies Allergy/AdvReac Type Severity Reaction Status Date / Time No Known Allergies Allergy Unverified 06/06/21 19:42 Family History Family History of: Depression and Anxiety Family Mental Health History Comment: Mom- anxiety Father and sister- depression/anxiety Alcohol History Hx of Alcohol Use Over the Past 12 Months: Yes AUDIT Total Score: 9 Drinks about 3-4 times per week with varying amounts of 3-5 drinks or sometimes 6-7 drinks. Experiencing more black outing, about weekly, especially since starting escitalopram. Had caused her to miss classes but no other negative academic or social consequences. She would like to decrease her use and feels she has no problem "not drinking" but "when I do I can't stop", this worsened after trauma experiences and then worsened this past year. Smoking Use Have You Smoked or Used Tobacco Products in the Last 30 Days: No Smoking Status: Never smoker Substance History Hx of Prescription Med Misuse Over the Past 12 Months: No Hx of Over the Counter Med Misuse Over the Past 12 Months: No Hx of Inhalent Misuse Over the Past 12 Months: No Hx of Organic Substance Use Over the Past 12 Months: Yes (Marijuana X 1/week) Hx of Illegal Substances/Street Drug Use Over Past 12 Months: No Problems as a Result of Past Substance Use: None Identified uses marijuana weekly via smoking. likes that it calms her down and feels more focused when interacting with peers. She doesn't like that after using it she feels more depressed and down and anxious. Has been cutting down on her use. Personal History Childhood: Grew up in [place], [place]. Parents are and has younger brother and sister. 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 ) Additional Comments: [employer] living off-campus with three roommates. Withdrew for spring but planning to start with [facility] [employer] [employer] [employer] management this summer. Patient History Medical History (Updated 06/07/21 @ 11:11 by Raquel Faustin MD) Anxiety Bulimia Depression Panic disorder Social History Smoking Status: Never smoker Hx Alcohol Use: Yes Alcohol type: beer, wine and hard liquor Hx Substance Use: No Preferred Language: Swedish Communication Ability: Effective Transit Bus Driver Required: No Beliefs That Will Affect Care: None Current Living Situation: Other Current Living Situation Comment: Lives in an apartment with three roommates Feels Safe at Home: Yes Assistive Devices: None Review of Systems Review of Systems: All systems reviewed & are unremarkable except as noted in HPI & below Physical Exam Psychiatric: Orientation: alert and oriented x 3 Apperance: appropriately dressed and appropriately groomed Eye Contact: good eye contact Motor Behavior: no abnormal motor movements Speech: normal rate/rhythm/volume of speech Affect: + depressed affect Mood: + depressed mood and + anxious mood Thought Process: goal directed thought process Thought Content: + obsessions, reality based without delusions and + compulsions Suicidal Thoughts: denies suicidal thoughts Homicidal Thoughts: denies homicidal thoughts Hallucinations: no auditory hallucinations and no visual hallucinations Cognition: recent memory grossly intact, remote memory grossly intact, attention grossly intact and language grossly intact Estimated Intelligence: consistent with education level Insight: + fair insight Judgement: + fair judgement Vital Signs (Past 24 Hours): Last Vital Signs Temp 36.5 C 06/07/21 06:00 Pulse 63 06/07/21 06:51 Resp 16 06/07/21 06:00 BP 99/66 L 06/07/21 06:51 Exam Statement: A physical exam was performed on the medical floor by Dr. Dwyer for the purposes of medical clearance. I accept that physical as correct and adequate for the purposes of the inpatient physical exam. Results & Data ([facility]) Current Inpatient Medications Current Inpatient Medications: Current Inpatient Medications Acetaminophen (Acetaminophen 325 Mg Tab) 650 mg PO Q4H PRN PRN Reason: Headache or Minor Fever Stop: 07/06/21 18:04 Al Hydrox/Mg Hydrox/Simethicone (Aluminum/Magnesium Susp 30 Ml Udc) 30 ml PO Q4H PRN PRN Reason: GI Upset Stop: 07/06/21 18:04 Bismuth Subsalicylate (Bismuth Subsalicylate Liqd 236 Ml) 15 ml PO PRN PRN PRN Reason: Loose Stool Stop: 07/06/21 18:04 Hydroxyzine HCl (Hydroxyzine Hcl 25 Mg Tab) 50 mg PO HSZ PRN PRN Reason: Insomnia Stop: 07/06/21 18:04 Hydroxyzine HCl (Hydroxyzine Hcl 25 Mg Tab) 25 mg PO Q4H PRN PRN Reason: Anxiety Stop: 07/06/21 18:04 Magnesium Hydroxide (Magnesium Hydroxide Susp 30 Ml Udc) 30 ml PO DAILY PRN PRN Reason: Constipation Stop: 07/06/21 18:04 Sodium Chloride (Sodium Chloride 0.65% Na Soln 45 Ml ([place])) 1 - 2 sprays NA PRN PRN PRN Reason: Nasal Dryness/Congestion Stop: 07/06/21 18:04
--- NOTE | 2021-06-07 16:25 | Electrocardiogram Report ---
Test Reason : Blood Pressure : / mmHG Vent. Rate : 066 BPM Atrial Rate : 066 BPM P-R Int : 128 ms QRS Dur : 086 ms QT Int : 432 ms P-R-T Axes : 058 087 073 degrees QTc Int : 452 ms Normal sinus rhythm Possible Left atrial enlargement Borderline ECG When compared with ECG of 06-JUN-2021 02:30, No significant change was found Confirmed by Saravanan Feldman ([id number]) on 06/07/2021 4:25:46 PM Referred By: Raquel Faustin Confirmed By:Vj Feldman
[2021-06-07] MEDS: PRAZOSIN HCL 1 MG CAP PO SCH (22:00)
--- NOTE | 2021-06-08 08:26 | Psychiatric Progress Note ---
Date of Service June 08, 2021 Impression / Recommendations Impression 21 yo woman and [employer] student admitted following impulsive suicide attempt in context of recent trauma and subsequently worsening PTSD, depression symptoms and increasing alcohol use. Diagnostically consistent with historical diagnoses and PTSD, atypical depressive disorder and alcohol use disorder. The patient is deemed unstable and requires psychiatric hospitalization for diagnostic clarification, safety and stabilization, medication management and development of further coping skills. 06/08/21: Tolerating initiation of sertraline and prazosin without any side effects, ongoing periods of anxiety and distress particularly related to PTSD (1) Post traumatic stress disorder (PTSD): (2) Atypical depressive disorder: (3) Alcohol use disorder, moderate, dependence: (4) Panic disorder: (5) Obsessive compulsive disorder: (6) STEPHANI (generalized anxiety disorder): (7) Bulimia: 06/08/21: Start sertraline 25mg qAM, continue with prazosin 1 mg qhs 06/07/21: The patient was admitted to the [facility] ([facility]) on q15 min checks (behavioral with suicide precautions) for safety. The patient will participate in group, recreational, and milieu therapies and will be offered additional individual and family sessions as clinically appropriate. -Repeat EKG given QTc had been elevated -If EKG normal will start sertraline 25mg qAM tomorrow -Start prazosin 1mg qhs Inventory Assets Strengths: motivated to get better, excited about major change, supportive family/friends Needs: outpatient providers, additional coping skills, med adjustments Risk Factors Assessment Male: No : Yes Do You Have Access To A Gun?: No Health Problems: No Mental Health Diagnoses: Yes Substance Use Disorders: Yes Previous Attempt: Yes Family History of Suicide: No Previous Psychiatric Hospitalization: No Hopelessness: No Smoker: No Protective Factors Assessment Employed: Yes Stable Relationships: Yes Supportive Family: Yes Interval History Identifying Information TONIA BARNES is a 21-year-old woman and [employer] student who currently lives with roommates in an off-campus apartment in [place], has a history of depression, anxiety, OCD, panic disorder, trauma and bulimia, and was admitted on 06/06/21 18:02 on a 201 voluntary commitment for suicide attempt via overdose of escitalopram requiring [facility] Chief Complaint "I'm ok". Review of Systems Sleep Information Total Hours of Sleep: 6.75 Meal Information Percent Meal Consumed - Breakfast: 75 Percent Meal Consumed - Lunch: 80 Percent Meal Consumed - Dinner: 100 Subjective Subjective Patient was seen & assessed and interval progress reviewed with treatment team nursing and social work. Had upsetting call with her sister. Showered and attending groups. Increased anxiety and distress after peer on the unit was discussing trauma in an uninhibited manner leading to understandable memories and distressing thoughts for Edwin. She read and was able to put these thoughts out of her mind after that. Tolerating sertraline without any side effects. Discussed PTSD and how it impacts the brain, typical course, effective treatments. Physical Exam Psychiatric Orientation: alert and oriented x 3 Apperance: appropriately dressed and appropriately groomed Eye Contact: good eye contact Motor Behavior: no abnormal motor movements Speech: normal rate/rhythm/volume of speech Affect: + depressed affect Mood: + depressed mood and + anxious mood Thought Process: goal directed thought process Thought Content: + obsessions, reality based without delusions and + compulsions Suicidal Thoughts: denies suicidal thoughts Homicidal Thoughts: denies homicidal thoughts Hallucinations: no auditory hallucinations and no visual hallucinations Cognition: recent memory grossly intact, remote memory grossly intact, attention grossly intact and language grossly intact Estimated Intelligence: consistent with education level Insight: + fair insight Judgement: + fair judgement Vital Signs (Past 24 Hours) Last Vital Signs Temp 36.4 C L 06/08/21 06:21 Pulse 80 06/08/21 06:23 Resp 16 06/08/21 06:21 BP 104/67 06/08/21 06:23 Results & Data ([facility]) Current Inpatient Medications Current Inpatient Medications: Current Inpatient Medications Acetaminophen (Acetaminophen 325 Mg Tab) 650 mg PO Q4H PRN PRN Reason: Headache or Minor Fever Stop: 07/06/21 18:04 Al Hydrox/Mg Hydrox/Simethicone (Aluminum/Magnesium Susp 30 Ml Udc) 30 ml PO Q4H PRN PRN Reason: GI Upset Stop: 07/06/21 18:04 Bismuth Subsalicylate (Bismuth Subsalicylate Liqd 236 Ml) 15 ml PO PRN PRN PRN Reason: Loose Stool Stop: 07/06/21 18:04 Hydroxyzine HCl (Hydroxyzine Hcl 25 Mg Tab) 50 mg PO HSZ PRN PRN Reason: Insomnia Stop: 07/06/21 18:04 Hydroxyzine HCl (Hydroxyzine Hcl 25 Mg Tab) 25 mg PO Q4H PRN PRN Reason: Anxiety Stop: 07/06/21 18:04 Magnesium Hydroxide (Magnesium Hydroxide Susp 30 Ml Udc) 30 ml PO DAILY PRN PRN Reason: Constipation Stop: 07/06/21 18:04 Prazosin HCl (Prazosin Hcl 1 Mg Cap) 1 mg PO ANJEL Stop: 07/07/21 21:59 Last Admin: 06/07/21 22:00 Dose: 1 mg Documented by: Sertraline HCl (Sertraline Hcl 50 Mg Tablet) 25 mg PO QAM ANJEL Stop: 07/08/21 08:59 Sodium Chloride (Sodium Chloride 0.65% Na Soln 45 Ml ([place])) 1 - 2 sprays NA PRN PRN PRN Reason: Nasal Dryness/Congestion Stop: 07/06/21 18:04
[2021-06-08] MEDS: SERTRALINE HCL 50 MG TABLET PO SCH (08:59)
[2021-06-08] MEDS: PRAZOSIN HCL 1 MG CAP PO SCH (22:14)
[2021-06-09] MEDS: SERTRALINE HCL 50 MG TABLET PO SCH (08:48)
--- NOTE | 2021-06-09 16:22 | Psychiatric Progress Note ---
Date of Service June 09, 2021 Impression / Recommendations Impression 21 yo woman and [employer] student admitted following impulsive suicide attempt in context of recent trauma and subsequently worsening PTSD, depression symptoms and increasing alcohol use. Diagnostically consistent with historical diagnoses and PTSD, atypical depressive disorder and alcohol use disorder. The patient is deemed unstable and requires psychiatric hospitalization for diagnostic clarification, safety and stabilization, medication management and development of further coping skills. 06/09/21: Tolerating sertraline, consents to further dose titration to address depression, anxiety, OCD and PTSD; continue with prazosin, no night terrors since started. Ongoing motivational interviewing regarding alcohol use. (1) Post traumatic stress disorder (PTSD): (2) Atypical depressive disorder: (3) Alcohol use disorder, moderate, dependence: (4) Panic disorder: (5) Obsessive compulsive disorder: (6) STEPHANI (generalized anxiety disorder): (7) Bulimia: 06/09/21: Increase to sertraline 50mg qAM starting tomorrow, continue with prazosin. Nasal saline spray for congestion. Needs family meeting. 06/08/21: Start sertraline 25mg qAM, continue with prazosin 1 mg qhs 06/07/21: The patient was admitted to the [facility] ([facility] mental health unit) on q15 min checks (behavioral with suicide precautions) for safety. The patient will participate in group, recreational, and milieu therapies and will be offered additional individual and family sessions as clinically appropriate. -Repeat EKG given QTc had been elevated -If EKG normal will start sertraline 25mg qAM tomorrow -Start prazosin 1mg qhs Inventory Assets Strengths: motivated to get better, excited about major change, supportive family/friends Needs: outpatient providers, additional coping skills, med adjustments Risk Factors Assessment Male: No : Yes Do You Have Access To A Gun?: No Health Problems: No Mental Health Diagnoses: Yes Substance Use Disorders: Yes Previous Attempt: Yes Family History of Suicide: No Previous Psychiatric Hospitalization: No Hopelessness: No Smoker: No Protective Factors Assessment Employed: Yes Stable Relationships: Yes Supportive Family: Yes Interval History Identifying Information TONIA BARNES is a 21-year-old woman and [employer] student who currently lives with roommates in an off-campus apartment in [place], has a history of depression, anxiety, OCD, panic disorder, trauma and bulimia, and was admitted on 06/06/21 18:02 on a 201 voluntary commitment for suicide attempt via overdose of escitalopram requiring medical admission prior to transfer to inpatient psychiatry. Chief Complaint "I'm alright". Review of Systems Sleep Information Total Hours of Sleep: 7 Meal Information Percent Meal Consumed - Breakfast: 100 Percent Meal Consumed - Lunch: 90 Percent Meal Consumed - Dinner: 100 Subjective Subjective Patient was seen & assessed and interval progress reviewed with treatment team nursing and social work. Difficulty yesterday evening due to intrusive peer but slept well. Having some vivid dreaming since starting sertraline but no other side effects. Tolerating prazosin well without any dizziness, some fatigue in the morning but feels this resolves quickly. No night terrors since starting prazosin. Finding groups very helpful. Some sinus congestion that she wonders if it could be related to a sinus infection. Physical Exam Psychiatric Orientation: alert and oriented x 3 Apperance: appropriately dressed and appropriately groomed Eye Contact: good eye contact Motor Behavior: no abnormal motor movements Speech: normal rate/rhythm/volume of speech Affect: + constricted affect Mood: + depressed mood and + anxious mood Thought Process: goal directed thought process Thought Content: + obsessions, reality based without delusions and + compulsions Suicidal Thoughts: denies suicidal thoughts Homicidal Thoughts: denies homicidal thoughts Hallucinations: no auditory hallucinations and no visual hallucinations Cognition: recent memory grossly intact, remote memory grossly intact, attention grossly intact and language grossly intact Estimated Intelligence: consistent with education level Insight: + fair insight Judgement: + fair judgement Vital Signs (Past 24 Hours) Last Vital Signs Temp 36.4 C L 06/09/21 06:42 Pulse 87 06/09/21 06:44 Resp 16 06/09/21 06:42 BP 102/65 06/09/21 06:44 Results & Data ([facility]) Current Inpatient Medications Current Inpatient Medications: Current Inpatient Medications Acetaminophen (Acetaminophen 325 Mg Tab) 650 mg PO Q4H PRN PRN Reason: Headache or Minor Fever Stop: 07/06/21 18:04 Al Hydrox/Mg Hydrox/Simethicone (Aluminum/Magnesium Susp 30 Ml Udc) 30 ml PO Q4H PRN PRN Reason: GI Upset Stop: 07/06/21 18:04 Bismuth Subsalicylate (Bismuth Subsalicylate Liqd 236 Ml) 15 ml PO PRN PRN PRN Reason: Loose Stool Stop: 07/06/21 18:04 Hydroxyzine HCl (Hydroxyzine Hcl 25 Mg Tab) 50 mg PO HSZ PRN PRN Reason: Insomnia Stop: 07/06/21 18:04 Hydroxyzine HCl (Hydroxyzine Hcl 25 Mg Tab) 25 mg PO Q4H PRN PRN Reason: Anxiety Stop: 07/06/21 18:04 Magnesium Hydroxide (Magnesium Hydroxide Susp 30 Ml Udc) 30 ml PO DAILY PRN PRN Reason: Constipation Stop: 07/06/21 18:04 Prazosin HCl (Prazosin Hcl 1 Mg Cap) 1 mg PO HS ANJEL Stop: 07/07/21 21:59 Last Admin: 06/08/21 22:14 Dose: 1 mg Documented by: Sertraline HCl (Sertraline Hcl 50 Mg Tablet) 25 mg PO QAM ANJEL Stop: 07/08/21 08:59 Last Admin: 06/09/21 08:48 Dose: 25 mg Documented by: Sodium Chloride (Sodium Chloride 0.65% Na Soln 45 Ml ([place])) 1 - 2 sprays NA PRN PRN PRN Reason: Nasal Dryness/Congestion Stop: 07/06/21 18:04
[2021-06-09] MEDS: PRAZOSIN HCL 1 MG CAP PO SCH (21:04)
--- NOTE | 2021-06-10 08:41 | Psychiatric Progress Note ---
Date of Service June 10, 2021 Impression / Recommendations Impression 21 yo woman and [employer] student admitted following impulsive suicide attempt in context of recent trauma and subsequently worsening PTSD, depression symptoms and increasing alcohol use. Diagnostically consistent with historical diagnoses and PTSD, atypical depressive disorder and alcohol use disorder. The patient is deemed unstable and requires psychiatric hospitalization for diagnostic clarification, safety and stabilization, medication management and development of further coping skills. 06/10/21: Continues to tolerate sertraline and prazosin well without side effects including higher dose of sertraline. Ongoing motivational interviewing regarding alcohol use which she plans to reduce/avoid use of after discaharge. (1) Post traumatic stress disorder (PTSD): (2) Atypical depressive disorder: (3) Alcohol use disorder, moderate, dependence: (4) Panic disorder: (5) Obsessive compulsive disorder: (6) STEPHANI (generalized anxiety disorder): (7) Bulimia: 06/10/21: family meeting held. Continue sertraline 50mg qd and prazosin 1 mg qhs. 06/09/21: Increase to sertraline 50mg qAM starting tomorrow, continue with prazosin. Nasal saline spray for congestion. Needs family meeting. 06/08/21: Start sertraline 25mg qAM, continue with prazosin 1 mg qhs 06/07/21: The patient was admitted to the [facility] ([facility] inpatient mental health unit) on q15 min checks (behavioral with suicide precautions) for safety. The patient will participate in group, recreational, and milieu therapies and will be offered additional individual and family sessions as clinically appropriate. -Repeat EKG given QTc had been elevated -If EKG normal will start sertraline 25mg qAM tomorrow -Start prazosin 1mg qhs Inventory Assets Strengths: motivated to get better, excited about major change, supportive family/friends Needs: outpatient providers, additional coping skills, med adjustments Risk Factors Assessment Male: No : Yes Do You Have Access To A Gun?: No Health Problems: No Mental Health Diagnoses: Yes Substance Use Disorders: Yes Previous Attempt: Yes Family History of Suicide: No Previous Psychiatric Hospitalization: No Hopelessness: No Smoker: No Protective Factors Assessment Employed: Yes Stable Relationships: Yes Supportive Family: Yes Interval History Identifying Information TONIA BARNES is a 21-year-old woman and [employer] student who currently lives with roommates in an off-campus apartment in [place], has a history of depression, anxiety, OCD, panic disorder, trauma and bulimia, and was admitted on 06/06/21 18:02 on a 201 voluntary commitment for suicide attempt via overdose of escitalopram requiring medical admission prior to transfer to inpatient psychiatry. Chief Complaint "I'm good". Review of Systems Sleep Information Total Hours of Sleep: 7 Meal Information Percent Meal Consumed - Breakfast: 100 Percent Meal Consumed - Lunch: 90 Percent Meal Consumed - Dinner: 90 Subjective Subjective Patient was seen & assessed and interval progress reviewed with treatment team nursing and social work. Attending groups, family meeting today. Reports family meeting went well. No side effects from sertraline or prazosin except vivid dreams. No night terrors since starting prazosin and no drowsiness this morning. Saline spray helping with congestion. Feels sertraline is helping her mood and feels less reactive with memories of past trauma. Denies SI. Physical Exam Psychiatric Orientation: alert and oriented x 3 Apperance: appropriately dressed and appropriately groomed Eye Contact: good eye contact Motor Behavior: no abnormal motor movements Speech: normal rate/rhythm/volume of speech Affect: euthymic affect Mood: + anxious mood; no depressed mood Thought Process: goal directed thought process Thought Content: + obsessions, reality based without delusions and + compulsions Suicidal Thoughts: denies suicidal thoughts Homicidal Thoughts: denies homicidal thoughts Hallucinations: no auditory hallucinations and no visual hallucinations Cognition: recent memory grossly intact, remote memory grossly intact, attention grossly intact and language grossly intact Estimated Intelligence: consistent with education level Insight: + fair insight Judgement: + fair judgement Vital Signs (Past 24 Hours) Last Vital Signs Temp 36.6 C 06/10/21 06:38 Pulse 89 06/10/21 06:39 Resp 16 06/10/21 06:38 BP 94/56 L 06/10/21 06:39 Results & Data ([facility]) Current Inpatient Medications Current Inpatient Medications: Current Inpatient Medications Acetaminophen (Acetaminophen 325 Mg Tab) 650 mg PO Q4H PRN PRN Reason: Headache or Minor Fever Stop: 07/06/21 18:04 Al Hydrox/Mg Hydrox/Simethicone (Aluminum/Magnesium Susp 30 Ml Udc) 30 ml PO Q4H PRN PRN Reason: GI Upset Stop: 07/06/21 18:04 Bismuth Subsalicylate (Bismuth Subsalicylate Liqd 236 Ml) 15 ml PO PRN PRN PRN Reason: Loose Stool Stop: 07/06/21 18:04 Hydroxyzine HCl (Hydroxyzine Hcl 25 Mg Tab) 50 mg PO HSZ PRN PRN Reason: Insomnia Stop: 07/06/21 18:04 Hydroxyzine HCl (Hydroxyzine Hcl 25 Mg Tab) 25 mg PO Q4H PRN PRN Reason: Anxiety Stop: 07/06/21 18:04 Magnesium Hydroxide (Magnesium Hydroxide Susp 30 Ml Udc) 30 ml PO DAILY PRN PRN Reason: Constipation Stop: 07/06/21 18:04 Prazosin HCl (Prazosin Hcl 1 Mg Cap) 1 mg PO HS ANJEL Stop: 07/07/21 21:59 Last Admin: 06/09/21 21:04 Dose: 1 mg Documented by: Sertraline HCl (Sertraline Hcl 50 Mg Tablet) 50 mg PO QAM ANJEL Stop: 07/10/21 08:59 Sodium Chloride (Sodium Chloride 0.65% Na Soln 45 Ml ([place])) 1 - 2 sprays NA PRN PRN PRN Reason: Nasal Dryness/Congestion Stop: 07/06/21 18:04 Last Admin: 06/09/21 16:28 Dose: 2 sprays Documented by: Mental Health & Subst Abuse Tx Therapist Name of Therapist: Guera Romero Date of Therapist Appointment: 06/19/21 Time of Therapist Appointment: [phone]
[2021-06-10] MEDS: SERTRALINE HCL 50 MG TABLET PO SCH (09:40)
[2021-06-10] MEDS: PRAZOSIN HCL 1 MG CAP PO SCH (22:02)
[2021-06-11] MEDS: SERTRALINE HCL 50 MG TABLET PO SCH (08:28)
--- NOTE | 2021-06-11 09:19 | Discharge Summary ---
Date of Service June 11, 2021 History of Present Illness Edwin presents following impulsive suicide attempt via ingestion of 20-40 tabs of escitalopram and medical stabilization on the hospitalist service with prolonged QTc. 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 She feels that "my mood changes really frequently" "sometimes my mood is great and I'm really happy and then something happens and I feel awful". She notes she tries to cope with these mood fluctuations by going for a run or sometimes with binging. The night prior to the attempt she had blacked out from drinking alcohol and the next day her friend expressed concern about "that I had blacked out so badly" and this lead her to feel "guilt" as it brought up memories of past trauma experiences which occurred in the setting of alcohol use and this prompted the suicide attempt. She immediately regreted the attempt and self-induced vomiting an sought medical treatment. She thinks her mood shifted so quickly because "this wasn't the choice that I wanted to make", "I want to live". She notes her family and friends are strong reasons to live. 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 Her biggest current challenges are mood shifts, "a complete lack of focus and easily daydreaming about something", she also feels her sleeping and eating is sporadic and not in a good routine due to her mood fluctuations. She scored an 18 on the PHQ-9 related to prominent neurovegetative symptoms. Has periods of helplessness and hopelessness. Denies anhedonia. She found the [employer] was really helping with her anxiety, panic disorder and OCD. Self-harms via cutting maybe once every 6 months. She can go 2 months without purging and then it can occur daily for about two weeks and then will be able to go months again with purging. She experiences flashbacks at times, night terrors on average 4-5 times per week, avoidance, hypervigilance. OCD symptoms are "hard to pinpoint" but sometimes counts on her fingers, alternating tensing muscles on opposing sides of the body with intrusive worries that something bad will happen or someone she loves will . Psychiatric ROS notable for denial of psychosis, no hx [place]. Physical Exam Vital Signs (Past 24 Hours) Last Vital Signs Temp 36.9 C 06/11/21 08:02 Pulse 91 H 06/11/21 08:02 Resp 16 06/11/21 08:02 BP 90/59 L 06/11/21 08:02 See admission H&P and DOD summary. Principal Diagnosis Major Depressive Disorder, Post Traumatic Stress Disorder Psychiatric Data See daily stay summary. In short, patient was engaged with the social/therapeutic milieu of the unit, safety was maintained and the patient was cooperative with care. Medication changes included discontinuation of escitalopram, initiation of sertraline and prazosin and they tolerated this well. Sertraline can be further titrated over the next few months as needed for symptom relief, given OCD she may require dosages at the higher end of the therapeutic range (sertraline 150 or 200mg qd) for full symptom resolution. A family session was held and safety plan was completed prior to discharge. In the days leading up to discharge she consistently denied any SI. She actively and insightfully participated in safety planning and in discussions about ways to seek support and recognizing warning signs and utilizing coping skills. She noted desire to avoid alcohol use. Reviewed mobile apps that could be used for additional ways to have their safety plan and contacts easily available should thoughts of SI re-emerge in the future. Reviewed importance of seeking emergency care should SI intensify, worsen or should they feel unsafe in the future which they agree to do. On the day of discharge she stated her mood was "pretty excited" and remained future-oriented including spending time with family and engaging in aftercare appointments for psychiatry and therapy. Day of Discharge Assessment Today the patient voices readiness for discharge. They note improvement in mood and anxiety. They deny thoughts of harm to self or others. Thoughts are organized and they are clinically improved from admission. There is no evidence of psychosis. They improved in the hospital with support and medication adjustments. They agree to take medications as prescribed and keep follow-up appointments. At the time of the discharge they are deemed to be stable and appropriate for outpatient level of care. They are not deemed to be at imminent risk of harm to self or others. They are aware of emergency and crisis services. Knows to call 911 or go to nearest emergency care center if in a crisis which cannot be handled as an outpatient. Transition of Care Transition Of Care Record: was reviewed with the patient Advance Directives Advance Directives Information Provided: Yes Advance Directives: No Mental Health Advance Directive: No Advance Directives on File: No Living Will: No Power of Biology Research Assistant: No Advance Directives Reason:: Declines as Mental Health Visit. Risk Factors Assessment Acute risk is low given denial of SI and improvement in mood. Chronic risk is moderate given non-modifiable risk factors including past attempts, co-morbid psychiatric diagnoses and history of trauma. Most significant modifiable risk factors were addressed and she was counseled on ways to reduce acute and medical facilities section director risk by avoiding alcohol use, engaging with outpatient therapy, taking her medications, staying engaged with activities that bring her meaning and happiness and utilizing her safety plan should she need it. Male: No : Yes Do You Have Access To A Gun?: No Health Problems: No Mental Health Diagnoses: Yes Substance Use Disorders: Yes Previous Attempt: Yes Family History of Suicide: No Previous Psychiatric Hospitalization: No Hopelessness: No Smoker: No Protective Factors Assessment Employed: Yes Stable Relationships: Yes Supportive Family: Yes Tobacco Cessation at Discharge Tobacco Cessation Medication Prescribed at Discharge: Not Applicable/Non-Smoker Hospital Course (1) Post traumatic stress disorder (PTSD): (2) Atypical depressive disorder: (3) Alcohol use disorder, moderate, dependence: (4) Panic disorder: (5) Obsessive compulsive disorder: (6) STEPHANI (generalized anxiety disorder): (7) Bulimia: 06/10/21: family meeting held. Continue sertraline 50mg qd and prazosin 1 mg qhs. 06/09/21: Increase to sertraline 50mg qAM starting tomorrow, continue with prazosin. Nasal saline spray for congestion. Needs family meeting. 06/08/21: Start sertraline 25mg qAM, continue with prazosin 1 mg qhs 06/07/21: The patient was admitted to the [facility] ([facility] mental [facility] unit) on q15 min checks (behavioral with suicide precautions) for safety. The patient will participate in group, recreational, and milieu therapies and will be offered additional individual and family sessions as clinically appropriate. -Repeat EKG given QTc had been elevated -If EKG normal will start sertraline 25mg qAM tomorrow -Start prazosin 1mg qhs Mental Health & Subst Abuse Tx Psychiatrist Name of Psychiatrist: Mark Mosley Psychiatrist's Date of Appointment with Psychiatrist: 07/10/21 Time of Appointment with Psychiatrist: 12:45pm Psychiatric Appointment Comment: [address] [place], [place] Psychiatrist Release of Information: Obtained, Reviewed and Signed Therapist Name of Therapist: Guera Romero Therapist's Date of Therapist Appointment: 06/19/21 Time of Therapist Appointment: 929 Therapy Appointment Comment: [address], [address], [place] Therapist Release of Information: Obtained, Reviewed and Signed Post Discharge Appointments Smoking Cessation Counseling Tobacco Cessation Medication Prescribed at Discharge: Not Applicable/Non-Smoker Other #1: Name of Aftercare Appointment: [facility] [place] Phone Number of Aftercare Appointment: [phone] (intake) Aftercare Appointment Comment: Three-step program beginning in 1-2 months, call for information #2: Name of Aftercare Appointment: [facility] Phone Number of Aftercare Appointment: [phone] Date of Aftercare Appointment: 06/12/21 Time of Aftercare Appointment: 2pm Aftercare Appointment Comment: [email or web address] Discharge Plan Discharge Items Patient Disposition: Home - Self-Care Reason For Visit: MDD Discharge Diagnosis: Major Depressive Disorder, Post Traumatic Stress Disorder Activity: Resume your previous activity Non-emergency contact: Primary Care Provider, Psychiatrist and Therapist Call non-emergency contact if: you have any medication questions and your symptoms worsen Follow-up/Referrals: [facility] [Primary Care Provider] - Diet: Regular Addtl Attending Provider Instructions: Optional mobile apps: -Suicide Safety Plans -Virtual Hope Box SPECIAL CARE INSTRUCTIONS: 1. Follow through with your scheduled aftercare appointments. If unable to keep an appointment, please call to reschedule. 2. Take your medication only as prescribed. Medication should not be changed or stopped without the approval of your doctor. In the event of worsening symptoms or concerns about side effects, contact your doctor immediately. 3. Utilize new healthy coping skills, anger management skills, and stress management skills learned during your hospitalization. Journal feelings and process them with a support person. Identify stressors or situations that may result in relapse, deterioration or inappropriate behaviors and develop a plan to deal with those issues. 4. If your coping skills are ineffective and you are in crisis, contact your outpatient providers for direction. If unable to reach your providers, please call the [facility] CRISIS LINE AT , go to the [facility] walk-in center at [address], [address], [place], or go to the closest Emergency Room. 5. Avoid alcohol and un-prescribed drugs. 6. You have been provided with the Mental Health Advance Directives Pamphlet for your review. 7. Your condition is stable for discharge to outpatient level of care, but recovery is an ongoing process. Ifthoughts to harm yourself or others return, follow the safety plan developed during your stay. Planning for a safe return home includes securing weapons. Our treatment team recommends weaponsbe removed from the home until your outpatient provider reassesses your progress. In rare cases where the items themselvescannot be removed, guns and ammunitionshould be secured separatelyand keys stored by a reliable personoutside of the home. If you were admitted on an involuntary commitment, the police or other legal authorities may be involved in this process. AFTERCARE APPOINTMENTS: * Please call your insurance company prior to your scheduled appointment to confirm your aftercare providers are covered. Take your insurance information to your appointments. WHO TO CALL AND WHEN: Medical Emergencies: For questions or emergencies related to your hospital stay, please contact the Inpatient Behavioral Health Unit at [phone]. A sex crimes detective is on-call 12/10 for the Behavioral Health Unit for emergencies At any time you feel your situation is an emergency, you may also call 911 immediately. Pending Studies at Discharge: No Stand-Alone Forms: My [facility] Medications and DC Order Prescriptions: New prazosin 1 mg Capsule 1 mg PO HS 30 Days Qty: 30 RF: 0 sertraline 50 mg Tablet 50 mg PO QAM 30 Days Qty: 30 RF: 0 Discontinued escitalopram oxalate [Lexapro] 20 mg Tablet 20 mg PO DAILY RF: 0 Discharge Orders: Discharge Order (Routine); Ordered 06/11/21 Ordered By: Raquel Hathaway/Other Patient Handouts: Journaling for Mental Health, Depression: Tips to Help Yourself Admission Data Admit Date/Time: 06/06/21 18:02 Attending Provider: Raquel Faustin Admit Provider: Donna Beverly Primary Care Provider: [facility] Other Interventions: Discharge Summary Assessment (RN) Last Done: 06/11/21 08:02 PSY Interdisciplinary Discharge Planning Last Done: 06/11/21 08:20 Coding Level of Care Code 96174 D/C day mgmt > 30 min Diagnoses Post traumatic stress disorder (PTSD) F43.10 Atypical depressive disorder F32.89 Alcohol use disorder, moderate, dependence F10.20 Panic disorder F41.0 Obsessive compulsive disorder F42.9 STEPHANI (generalized anxiety disorder) F41.1 Bulimia F50.2 Time Spent (min) 38
== END 2021-06-11 10:00 | disposition home or self-care (01) | DRG 881 ==
LOC: 3S 18:02